=== PATIENT | male | born 1950 | race African-American/Black ===

== ENCOUNTER 2021-02-27 04:18 | Day surgery (SDC) | payer OTHER ==
[2021-02-21 16:14] VITALS: BMI 29.6
[2021-02-27] MEDS ORDERED: MIDAZOLAM HCL 2 MG/2 ML SINGLE DOSE VIAL ONE (08:13)
[2021-02-27] MEDS ORDERED: PROPOFOL 20 ML ONE (08:24)
[2021-02-27] MEDS ORDERED: ACETAMINOPHEN 325 MG TABLET (FP) PO PRN (08:56)
[2021-02-27] MEDS ORDERED: ONDANSETRON 4 MG/2 ML VIAL IVPUSH PRN (08:56)
[2021-02-27] MEDS ORDERED: oxyCODONE HCL 5 MG TABLET PO PRN (08:56)
[2021-02-27] MEDS ORDERED: LACTATED RINGERS SOLUTION 1,000 ML IV SCH (09:00)
[2021-02-27 09:01] VITALS: PULSE 67; TEMP 97.5
[2021-02-27 10:21] VITALS: BP 145/82
== END 2021-02-27 10:25 | disposition home or self-care (01) ==
LOC: JASU-SURG 04:18
PROVIDERS: ATTEND Urology
PROC: 0TF4XZZ Fragmentation in Left Kidney Pelvis, External Approach (ICD-10-PCS; principal; 2021-02-27 08:00)
DX: N20.0 Calculus of kidney (principal); E11.9 Type 2 diabetes mellitus without complications; I10 Essential (primary) hypertension
CPT/HCPCS: 82962